=== PATIENT | male | born 1965 | race Caucasian/White ===

== ENCOUNTER → 2017-12-11 07:59 | Outpatient (CLI) | payer BC, SELFPAY ==
--- NOTE | 2017-12-17 14:04 | DIABASSESS_ITS ---
DESCRIPTION/ASSESSMENT: Remi Raya presents for diabetes self management focused on food. He is newly diagnosed with A1c 7.4. Food Guidelines - has changed many food choices from breakfast sandwich to friut in AM, given up twinkie type foods, stopped Mt. Dew and lemonade. He is drinking water and skipping snacks. He eats a ham/cheese wrap for lunch and broccoli cheddar or chicken noodle soup for lunch. He has a cheeseburger with bun for supper; steak and pasta. 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 Medication - Metformin 750mg once a day Monitoring - he does not have a monitor Risks: he quit tobacco 2 weeks ago Coping - denies unreasonable stress INTERVENTION: MNT is provided in the following areas based on patients interest and assessment of needs: Food Guidelines - Reviewed diabetes food guide with focus on carbohydrate sources that are better for glycemic control, and focused on non-carbohydrate foods. Physical Activity - discussed benefits of cardiovascular activity and he acknowledges this. Monitoring - tested blood sugars today at 140mg/dl. He agrees to focus on food and exercise and reconsider at his next provider visit. ACTION PLAN: He agrees to read labels for carbohydrate; cut back by 1 slice of bread daily; increase vegetables daily be physically active 3 days a week working toward 20 minutes each time
== END ==
PROVIDERS: PCP Specialist/Technologist Athletic Trainer; Visit Provider Dietitian, Registered
DX: E11.9 Type 2 diabetes mellitus without complications (principal); Z71.3 Dietary counseling and surveillance
CPT/HCPCS: 97802

== ENCOUNTER 2018-01-02 13:09 | Outpatient (REF) | payer SELFPAY | END 2018-01-02 13:10 | LOC: OM 13:09 | PROVIDERS: PCP Specialist/Technologist Athletic Trainer; Visit Provider Nurse Practitioner Family | DX: Z02.79 Encounter for issue of other medical certificate (principal) ==

== ENCOUNTER 2018-10-23 16:15 | Outpatient (REF) | payer BC, SELFPAY ==
[2018-10-23 21:37] LABS: Anion Gap 12.6 mmol/L (3-11); BUN 20 mg/dL (7-18); CO2 26.4 mmol/L (21.0-32.0); CREATININE 0.95 mg/dL (0.70-1.30); Calcium 8.8 mg/dL (8.5-10.1); Calculated LDL 76; Chloride 105 mmol/L (98-107); Cholesterol 145 mg/dL (50-200); Glucose 179 mg/dL (70-100); HDL Cholesterol 33 mg/dL (40-60); Potassium 4.3 mmol/L (3.5-5.1); Sodium 144 mmol/L (136-145); Triglyceride 180 mg/dL (30-150)
== END 2018-10-23 16:35 ==
LOC: NCHCN 16:15
PROVIDERS: PCP Specialist/Technologist Athletic Trainer; Visit Provider Specialist/Technologist Athletic Trainer
DX: R73.09 Other abnormal glucose (principal); Z00.00 Encounter for general adult medical examination without abnormal findings; E78.5 Hyperlipidemia, unspecified
CPT/HCPCS: 80048; 80061; 83721

== ENCOUNTER 2019-05-15 11:13 | Outpatient (REF) | payer BC, SELFPAY | END 2019-05-15 11:33 | LOC: NCHCN 11:13 | PROVIDERS: PCP Specialist/Technologist Athletic Trainer; Visit Provider Specialist/Technologist Athletic Trainer | DX: N40.0 Benign prostatic hyperplasia without lower urinary tract symptoms (principal) | CPT/HCPCS: 84154 ==

== ENCOUNTER 2019-06-07 01:15 | Emergency (ER) | payer BC, SELFPAY ==
[2019-06-07 01:18] VITALS: BP 158/106; PULSE 77; RESP 16; TEMP 36.4; O2SAT 99
--- NOTE | 2019-06-07 01:23 | DI.CT_ITS ---
EXAM: CT CHEST PE CTA CLINICAL HISTORY: Hemoptysis, rule out PE, mass, pneumonia. TECHNIQUE: Imaging Protocol: Axial CT angiography was performed with multi-slice acquisition and mu lti-planar and/or 3D reconstructions. CONTRAST MATERIAL: Intravenous: Omnipaque 350 Contrast volume:62 mL COMPARISON: No exams were available for comparison FINDINGS: Pulmonary Arteries: No evidence of filling defect to suggest pulmonary emboli. Patient motion artifac t does limit evaluation. Tracheobronchial tree: Patent where visualized. Mediastinum and Ana: No dominant adenopathy or fluid collection. Pulmonary parenchyma: No consolidation or dominant measurable mass. Mild paraseptal emphysematous matthew nges. Pleura: No effusion or pneumothorax. Heart: The heart is not dilated. No coronary artery calcifications are seen. No right heart strain or pericardial effusion. Aorta: Thoracic aorta non-dilated. No aneurysm or dissection. Upper abdomen: Unremarkable. Bones: Mild degenerative changes. Other findings: Patient motion artifact. IMPRESSION: No pulmonary embolus, thoracic aortic dissection or aneurysm. DATA REPOSITORY: All CT scans at this facility are submitted to the National Radiology Data Registry (NRDR) Dose Index Registry (DIR) with the [employer] (ACR). RADIATION OPTIMIZATION: All CT scans at this facility use at least one of these dose optimization te chniques: automated exposure control; mA and/or kV adjustment per patient size (includes targeted exa ms where dose is matched to clinical indication); or iterative reconstruction.
--- NOTE | 2019-06-07 01:23 | W.ED.GENAD ---
Discharge Plan Disposition Patient Disposition: HOME Condition: Good Discharge Details Chief Complaint: RespSymp Clinical Impression: Blood-tinged sputum Primary Care Provider: Brennen De La Garza ED Provider: Jarod Alvarez Home Meds and New Rx's Prescriptions: New Symbicort 160-4.5 mcg/actuation HFA aerosol inhaler 2 puff IH BID Qty: 6 RF: 0 Continued acyclovir 200 MG capsule 200 mg PO DAILY RF: 0 tamsulosin 0.4 MG capsule 0.4 mg PO DAILY RF: 0 esomeprazole magnesium [Nexium] 40 MG capsule,delayed release(DR/EC) 40 mg PO DAILY RF: 0 simvastatin 20 MG tablet 20 mg PO DAILY RF: 0 ibuprofen 800 MG tablet 800 mg PO Q8H PRNQty: 15 RF: 0 Discharge Instructions Instructions: Hemoptysis (ED) Additional Instructions: At this time the CT scan shows no evidence of significant pneumonia, severe bronchitis requiring antibiotics, or cancer. Please take the inhaler as directed. Please follow-up closely with your primary care provider. If you notice any worsening of your symptoms, or any new symptoms such as return of the blood in your sputum, vomiting, diarrhea, fever, chills, shortness of breath, chest pain, numbness, weakness, or fainting , please return immediately to the emergency department for reevaluation. Please follow up with your primary care provider as soon as possible for reassessment and reevaluation. As always, it was a pleasure participating in your medical care today. Referrals: Brennen De La Garza [Primary Care Provider] - Medical Decision Making Is a very pleasant 54-year-old male no significant past medical history who presents today for evaluation of hemoptysis. He is a chronic smoker, he states that for the last 2 to 3 weeks he has had a mild nonproductive cough, and starting today he has had a fairly significant amount of bleeding which she describes as quarter to half dollar size, present with cough with bright red blood. He denies history of cancer. He does admit to mild fatigue and mild weight loss over the last 2 to 3 weeks. Physical exam demonstrates clear lung sounds, oxygen saturation is notably stable at 99%, respirations 16. Patient states that he feels very well. He is not actively coughing currently. Differential includes bronchitis, versus pneumonia. Less likely PE. Obviously of concern is also lung mass or cancer. We will get a CT scan for further assessment, evaluate for anemia, closely monitor and reassess. Currently the patient is notably stable and shows no signs whatsoever of significant airway compromise, significant hemoptysis or other abnormality. There is no clinical indication whatsoever for emergent airway intervention. 3 AM Patient's laboratory work-up is returned notably unremarkable. No white count, bandemia, or left shift. Hemoglobin is stable, coagulation studies are normal. Electrolytes unremarkable. Renal function stable. Troponin normal and TSH normal. CT scan shows no evidence of dissection, significant pulmonary embolism, or other significant abnormality per virtual radiology. Symptoms clinically consistent with Yisel-Boone tear or Boerhaave syndrome. I suspect the patient's symptoms are likely secondary to mild bronchitis. The patient has had a few more episodes of cough here in the ED, and he has had no hemoptysis whatsoever here. Patient remains hemodynamically stable. At this time with no evidence of significant parenchymal abscesses, and an unremarkable CT scan I feel his symptoms are clinically consistent with mild bronchitis and small amounts of hemoptysis secondary to this. I do feel that the patient can be safely discharged home with close follow-up with his primary care provider. Discussed red flags which to return. We will give a combination albuterol steroid inhaler. I have extensively reviewed the treatment plan and discharge instructions with the patient and their family. I have addressed all patient concerns at this time. The patient and family was made aware of what symptoms to monitor for that would warrant a return to the emergency department. Discussed the plan with the patient and family, they demonstrate verbal understanding and agreement with our assessment and plan at this time. EKG 1: 29 Rate 79, intervals normal, normal sinus rhythm, no significant ST elevations or depressions, minimal less than 1 mm of elevation in V1 and V2, inverted T wave in lead III. No evidence of STEMI. FINDINGS: Pulmonary arteries: Main pulmonary artery normal in caliber. No pulmonary emboli to segmental level. Motion degradation of images limits evaluation more distally the. Aorta: Unremarkable. No aortic aneurysm. No aortic dissection. Lungs: Hyperinflation of lungs with mild emphysematous change. Central airways patent. Pleural space: Unremarkable. No pneumothorax. No pleural effusion. Heart: Unremarkable. No cardiomegaly. No pericardial effusion. Lymph nodes: Unremarkable. No enlarged lymph nodes. Bones/joints: The spine demonstrates mild degenerative changes at multiple levels. No acute fracture. Soft tissues: Unremarkable. IMPRESSION: 1. No pulmonary artery embolism demonstrated to segmental level. Evaluation more distally limited. 2. Mild emphysema. Thank you for allowing us to participate in the care of your patient. Dictated and Authenticated by: Remi Swanson DO 06/07/2019 2:57 AM Eastern Time ([place] & [place]) HPI General Date/Time Provider Initiated Documentation: 06/07/19 01:16. HPI Narrative: This is a 54-year-old male with a past medical history of chronic tobacco abuse, who presents for hemoptysis. Patient states that for the last 2 to 3 weeks he has had a mild cough that is been nonproductive, he does admit to very mild weight loss and fatigue, but denies any personal history of cancer. He describes the hemoptysis as becoming present this evening/early afternoon, he describes it as bright red, and half dollar sized to slightly larger. He denies previous hemoptysis, previous history of malignancy. He does admit to mild chest tightness that is nonexertional and is been present for the last few weeks in conjunction with his cough. Denies PE risk factors such as recent long car rides, immobilization, recent surgery, prior history of DVT or PE, family history of PE or DVT, morbid obesity, exogenous estrogen and smoking, hemoptysis, history of cancer. He is on no blood thinners. Related Data Home Medications Medication Instructions Recorded Confirmed acyclovir 200 mg PO DAILY 03/27/13 10/21/15 esomeprazole magnesium [Nexium] 40 mg PO DAILY 10/21/15 06/07/19 simvastatin 20 mg PO DAILY 10/21/15 06/07/19 tamsulosin 0.4 mg PO DAILY 10/21/15 06/07/19 ibuprofen 800 mg PO Q8H PRN #15 tablet 02/03/17 06/07/19 budesonide-formoterol [Symbicort] 2 puff IH BID #6 gm 06/07/19 Previous Rx's Medication Instructions Recorded ibuprofen 800 mg PO Q8H PRN #15 tablet 02/03/17 budesonide-formoterol [Symbicort] 2 puff IH BID #6 gm 06/07/19 Allergies Allergy/AdvReac Type Severity Reaction Status Date / Time pravastatin Allergy Severe chest pain Unverified 02/03/17 09:53 General Stated Complaint: RespSymp VANESSA: 3 Review of Systems All systems reviewed & are unremarkable except as noted in HPI and below PFSH Medical History (Updated 06/07/19 @ 02:51 by Jarod Alvarez DO) Gastroesophageal reflux disease Hyperlipidemia Surgical History (Updated 02/19/18 @ 14:34 by [place]) Repair of inguinal hernia Social History Smoking/Tobacco Use Status: Current every day Tobacco Type: cigarettes Alcohol Intake: current Alcohol Intake frequency: 3 or more drinks per day Alcohol type: beer Drug use: Never Substance use type: does not use Do you feel safe at home: Yes Do you feel safe in your relationship?: Yes Exam Narrative Exam Narrative: 1.Const: Well-nourished, Well-developed, appearing stated age 2.Eyes: PERRL, no conjunctival injection, and symmetrical lids. 3.ENT: Atraumatic external nose and ears. Moist MM. Neck: Symmetric, trachea midline, No thyromegaly. 4.CVS: +S1/S2, No murmurs or gallops. Peripheral pulses 2+ and equal in all extremities. Brisk capillary refill in all extremities. 5.RESP: Unlabored respiratory effort. Clear to auscultation bilaterally. No wheezes rales or rhonchi 6.GI: Soft, Nontender/Nondistended, No hepatosplenomegaly. No guarding or rebound. 7.MSK: Normocephalic/Atraumatic, Extremities w/o deformity or ttp No cyanosis or clubbing, Normal movement of all extremities 8.Skin: Warm, Dry. No rashes or lesions. 9.Neuro: nuclear medical technologist II-XII grossly intact. Sensation grossly intact, no focal neurologic deficits. 10.Psych: (AAO) x3. Appropriate mood and affect Course Vital Signs Vital signs: Vital Signs Temperature 36.4 C L 06/07/19 01:18 Pulse 77 06/07/19 01:18 Respiratory Rate 16 06/07/19 01:18 Blood Pressure 158/106 H 06/07/19 01:18 Pulse Oximetry 99 06/07/19 01:18 Temperature 36.4 C L 06/07/19 01:18 Temperature Source Skin 06/07/19 01:18 Pulse 77 06/07/19 01:18 Respiratory Rate 16 02/02/20 01:18 Blood Pressure 158/106 H 06/07/19 01:18 Blood Pressure Position Sitting 06/07/19 01:18 Pulse Oximetry 99 06/07/19 01:18 Oxygen Delivery Method Bi-pap 06/07/19 01:18 Oxygen Flow Rate 0 06/07/19 01:18
[2019-06-07 01:48] LABS: Abs Immature Grans 0.07 k/cumm (0.0-0.09); Absolute Basophil Count 0.06 k/cumm (0.0-0.2); Absolute Eosinophil Count 0.16 k/cumm (0.0-0.7); Absolute Monocyte Count 0.82 k/cumm (0.11-0.7); Absolute Neutrophil Count 4.82 k/cumm (1.2-6.7); Basophils % 0.6; Eosinophils % 1.6; HCT 46.7 % (40.0-50.0); HGB 16.3 g/dL (13.5-17.5); Immature Grans % 0.7 %; Lymphocytes % 39.1; Mean Corp. HGB Concentration 34.9 g/dL (32.0-36.0); Mean Corpuscular Hemoglobin 30.9 pg (27.0-33.0); Mean Corpuscular Volume 88.4 fL (80-95); Mean Platelet Volume 9.9 fL (8.0-11.0); Monocytes % 8.4; Neutrophils % 49.6; Platelet Count 239 x1000/uL (130-400); RBC 5.28 m/cumm (4.50-6.00); RBC Distribution Width 13.2 % (11.8-14.1); White Blood Cell Count 9.73 k/cumm (4.4-10.8)
[2019-06-07 02:01] LABS: PTT Activated 24.3 sec (21.0-31.4); Prothrombin Time 10.4 sec (9.3-11.0)
[2019-06-07 02:03] LABS: ALT 30 U/L (16-63); AST 19 U/L (15-37); Alkaline Phosphatase 106 U/L (46-116); Anion Gap 12.6 mmol/L (3-11); BUN 14 mg/dL (7-18); Bilirubin, Total 0.3 mg/dL (0.2-1.0); CO2 25.4 mmol/L (21.0-32.0); CREATININE 0.87 mg/dL (0.70-1.30); Calcium 8.5 mg/dL (8.5-10.1); Chloride 104 mmol/L (98-107); Glucose 116 mg/dL (74-106); Potassium 3.7 mmol/L (3.5-5.1); Sodium 142 mmol/L (136-145); Total Protein 7.6 g/dL (6.4-8.2)
[2019-06-07 02:04] LABS: Troponin I < 0.05 ng/Ml (<0.06)
[2019-06-07 02:11] LABS: TSH (W/Ref FT4) 2.69 uIU/mL (0.36-3.74)
[2019-06-07] MEDS: Omnipaque 350 MG/ML 100 ML BTL IJ (02:35)
--- NOTE | 2019-06-07 02:55 | DI.VRAD_ITS ---
PROCEDURE INFORMATION: Exam: CT Angiography Chest With Contrast Exam date and time: 06/07/2019 2:25 AM Age: 54 years old Clinical indication: Other: Hemoptysis; Additional info: R/O pe, mass, pneumonia TECHNIQUE: Imaging protocol: Computed tomographic angiography of the chest with intravenous contrast. 3D rendering: MIP and/or 3D reconstructed images were created by the technologist. COMPARISON: CR ABD FLAT UPRIGHT PA CHEST 10/21/2015 3:29 PM FINDINGS: Pulmonary arteries: Main pulmonary artery normal in caliber. No pulmonary emboli to segmental level. Motion degradation of images limits evaluation more distally the. Aorta: Unremarkable. No aortic aneurysm. No aortic dissection. Lungs: Hyperinflation of lungs with mild emphysematous change. Central airways patent. Pleural space: Unremarkable. No pneumothorax. No pleural effusion. Heart: Unremarkable. No cardiomegaly. No pericardial effusion. Lymph nodes: Unremarkable. No enlarged lymph nodes. Bones/joints: The spine demonstrates mild degenerative changes at multiple levels. No acute fracture. Soft tissues: Unremarkable. IMPRESSION: 1. No pulmonary artery embolism demonstrated to segmental level. Evaluation more distally limited. 2. Mild emphysema. Dictated and Authenticated by: Remi Swanson MD. Ordering:GAVIN Olivera MD
[2019-06-07] MEDS: Inhaler, Assist Device 1 EACH MC (03:03)
[2019-06-07 03:05] VITALS: BP 142/86; PULSE 91; RESP 16; O2SAT 100
== END 2019-06-07 03:20 | disposition home or self-care (01) ==
PROVIDERS: Emergency Provider Student in an Organized Health Care Education/Training Program; PCP Specialist/Technologist Athletic Trainer
DX: R04.2 Hemoptysis (principal); R53.83 Other fatigue; R63.4 Abnormal weight loss; F17.210 Nicotine dependence, cigarettes, uncomplicated
CPT/HCPCS: 36415; 71275; 80053; 93005; 99285; 84443; 84484; 85025; 85610; 85730; 93010; J3490

== ENCOUNTER 2020-08-08 12:28 | Outpatient (REF) | payer BC, SELFPAY ==
[2020-08-08 15:53] LABS: Anion Gap 10.3 mmol/L (3-11); BUN 14 mg/dL (7-18); CO2 25.7 mmol/L (21.0-32.0); CREATININE 0.9 mg/dL (0.70-1.30); Calcium 9.3 mg/dL (8.5-10.1); Calculated LDL 94 mg/dL (<100); Chloride 105 mmol/L (98-107); Cholesterol 159 mg/dL (<200); Glucose 120 mg/dL (74-106); HDL Cholesterol 42 mg/dL (40-60); Potassium 4.3 mmol/L (3.5-5.1); Sodium 141 mmol/L (136-145); Triglyceride 115 mg/dL (<150)
== END 2020-08-08 12:29 | disposition home or self-care (01) ==
LOC: NCHCN 12:28
PROVIDERS: PCP Nurse Practitioner Family; Visit Provider Nurse Practitioner Family
DX: I10 Essential (primary) hypertension (principal); E78.5 Hyperlipidemia, unspecified
CPT/HCPCS: 80048; 80061

== ENCOUNTER 2021-04-23 10:35 | Emergency (ER) | payer BC, SELFPAY ==
[2021-04-23 10:37] VITALS: BP 156/105; PULSE 96; TEMP 37.2; O2SAT 97
--- NOTE | 2021-04-23 10:52 | W.ED.GENAD ---
Discharge Plan Disposition Patient Disposition: HOME Condition: Improving Discharge Details Clinical Impression: Urticaria Primary Care Provider: Cindy Uribe ED Provider: Brendan Schmidt Home Meds and New Rx's Prescriptions: New prednisone 50 mg tablet 50 mg PO DAILY 5 Days Qty: 5 RF: 0 famotidine 20 mg tablet 20 mg PO BID 5 Days Qty: 10 RF: 0 Continued acyclovir 200 MG capsule 200 mg PO DAILY RF: 0 tamsulosin 0.4 MG capsule 0.4 mg PO DAILY RF: 0 esomeprazole magnesium [Nexium] 40 MG capsule,delayed release(DR/EC) 40 mg PO DAILY RF: 0 simvastatin 20 MG tablet 20 mg PO DAILY RF: 0 ibuprofen 800 MG tablet 800 mg PO Q8H PRNQty: 15 RF: 0 budesonide-formoterol [Symbicort] 160-4.5 mcg/actuation HFA aerosol inhaler 2 puff IH BID Qty: 6 RF: 0 Discharge Instructions Instructions: Urticaria (ED) Additional Instructions: Please take famotidine and prednisone as prescribed until finished. May use Benadryl 25 to 50 mg as needed for itching. Apply cool compress to reduce discomfort. Return to the emergency room for any acute concerns. Medical Decision Making 55-year-old male presents from home with onset of acute, pruritic, raised urticarial-like rash primarily located on his arms. He has no other systemic signs and symptoms of anaphylactic. Consistent with dermatitis. We'll place him on a burst of steroids with oral prednisone, he may use Zantac as well as [id number] Benadryl. He is stable and appropriate for discharge to home. HPI General Mode of arrival: ambulatory. Date/Time Provider Initiated Documentation: 04/23/21 10:35. Information obtained by: patient. History of Present Illness 55 year old M presents to the emergency department with the chief complaint of Itching itching rash, primarily on arms, described as moderate, and is localized to the left, right and upper extremity. Patient reports no radiation. Patient started experiencing this hour(s) and it has been constant. No relieving factors improve symptom(s), No exacerbating factors reported . Patient notes denies chest pain, cough, shortness of breath and syncope. Patient did receive the following treatments prior to arrival, none Related Data Home Medications Medication Instructions Recorded Confirmed acyclovir 200 mg PO DAILY 03/27/13 04/23/21 esomeprazole magnesium [Nexium] 40 mg PO DAILY 10/21/15 04/23/21 simvastatin 20 mg PO DAILY 10/21/15 04/23/21 tamsulosin 0.4 mg PO DAILY 10/21/15 04/23/21 ibuprofen 800 mg PO Q8H PRN #15 tablet 02/03/17 04/23/21 budesonide-formoterol [Symbicort] 2 puff IH BID #6 gm 06/07/19 04/23/21 famotidine 20 mg PO BID 5 Days #10 tab 04/23/21 prednisone 50 mg PO DAILY 5 Days #5 tab 04/23/21 Previous Rx's Medication Instructions Recorded ibuprofen 800 mg PO Q8H PRN #15 tablet 02/03/17 budesonide-formoterol [Symbicort] 2 puff IH BID #6 gm 06/07/19 famotidine 20 mg PO BID 5 Days #10 tab 04/23/21 prednisone 50 mg PO DAILY 5 Days #5 tab 04/23/21 Allergies Allergy/AdvReac Type Severity Reaction Status Date / Time pravastatin Allergy Severe chest pain Unverified 04/23/21 10:43 General Stated Complaint: RashLesion VANESSA: 4 Review of Systems Narrative: 6 systems reviewed and otherwise negative. No throat closing, noticed difficulty swallowing, no change to speech, no wheezing. PFSH All Active Problems (Updated 04/23/21 @ 10:54 by Brendan Schmidt MD) Screening for colorectal cancer (Acute) Blood-tinged sputum (Acute) Urticaria (Acute) Medical History Gastroesophageal reflux disease Hyperlipidemia Surgical History (Updated 02/19/18 @ 14:34 by [employer] [place]) Repair of inguinal hernia Social History Smoking/Tobacco Use Status: Current every day Tobacco Type: cigarettes Smoking risk assessment performed?: Yes Alcohol Intake: current Alcohol Intake frequency: 3 or more drinks per day Alcohol type: beer Drug use: Never Substance use type: does not use Do you feel safe at home: Yes Do you feel safe in your relationship?: Yes Exam Narrative Exam Narrative: GEN: awake, alert, oriented 3. Pleasant, well groomed, interactive. HEAD: Normocephalic, atraumatic ENT: Mucous membranes moist, oropharynx unremarkable, External ear exam unremarkable EYES: PERRL, EOMI NECK: Full ROM, no JOSE, no menigismus CHEST/RESP: Nontender, clear to auscultation bilateral, no wheeze/rhonchi/rales CARDIOVASCULAR: RRR, no murmur, rub oc. 2+ Rad pulse bilateral ABDOMEN: Soft, nontender, no mass. +Bowel sounds EXT: Full ROM, no edema, bilateral arms with blanching, erythematous, raised and urticarial-like rash. Scant rash present on chest and abdomen. Neuro: Grossly normal neurologic exam, conversant, interactive. Psych: Speech fluent, thoughts congruent, affect normal Course Vital Signs Vital signs: Vital Signs Temperature 37.2 C 04/23/21 10:37 Pulse 96 H 04/23/21 10:37 Blood Pressure 156/105 H 04/23/21 10:37 Pulse Oximetry 97 04/23/21 10:37 Temperature 37.2 C 04/23/21 10:37 Temperature Source Temporal Artery Scan 04/23/21 10:37 Pulse 96 H 04/23/21 10:37 Respiratory Effort Non-Labored 04/23/21 10:41 Blood Pressure 156/105 H 04/23/21 10:37 Blood Pressure Position Sitting 04/23/21 10:37 Pulse Oximetry 97 04/23/21 10:37 Oxygen Delivery Method Room Air 04/23/21 10:37 Oxygen Flow Rate 0 04/23/21 10:37 Pain Level 0 04/23/21 10:37 PAWSS Have you Been Recently Intoxicated or Drunk Within the Last 30 days?: No Have you Ever Experienced Previous Episodes of Alcohol Withdrawal?: No Have you ever Experienced Withdrawal Seizures?: No Have you ever Experienced Delirium Tremens(DT)s?: No Have you ever undergone Alcohol Rehabilitation Treatment (i.e, inpt ot outpatient treatment programs)?: No Have you ever Experienced Blackouts?: No Have you ever Combined Alcohol with other Downers within the last 90 days?: No Have you ever Combined Alcohol with any other Substance of Abuse during the last 90 days?: No Positive Blood Alcohol level on Presentation? [PCS.BAL]: No Evidence of Increased Autonomic Activity (i.e. HR>120, tremor, sweating, agitation, nausea)?: No Result: 0
[2021-04-23] MEDS: Famotidine 20 MG TAB 40 MG PO (11:00)
[2021-04-23] MEDS: predniSONE 20 MG TAB 60 MG PO (11:00)
== END 2021-04-23 11:04 | disposition home or self-care (01) ==
PROVIDERS: Emergency Provider Emergency Medicine; PCP Nurse Practitioner Family
DX: L50.8 Other urticaria (principal)
CPT/HCPCS: 99283; J7512

== ENCOUNTER 2022-04-13 16:28 | Outpatient (REF) | payer BC, SELFPAY ==
[2022-04-13 20:14] LABS: COMMENT (LAB VIEW ONLY) 276.87 mg/dL; PROTEIN 37.9 mg/dL; Prot/Crea Ur Ratio 0.13
== END 2022-04-13 16:29 | disposition home or self-care (01) ==
LOC: NCHCN 16:28
PROVIDERS: PCP Nurse Practitioner Family; Visit Provider Nurse Practitioner Family
DX: E11.9 Type 2 diabetes mellitus without complications (principal)
CPT/HCPCS: 82565; 84156

== ENCOUNTER 2022-09-08 10:40 | Emergency (ER) | payer BC, SELFPAY ==
[2022-09-08 10:46] VITALS: BP 126/101; PULSE 111; RESP 18; TEMP 36.3; O2SAT 96
--- NOTE | 2022-09-08 10:54 | W.ED.GENAD ---
Discharge Plan Disposition Patient Disposition: Home Condition: Stable Discharge Details Clinical Impression: Abdominal pain Primary Care Provider: Cindy Uribe ED Provider: Benja Villa Home Meds and New Rx's Prescriptions: New amoxicillin-pot clavulanate 875-125 mg tablet 1 tab PO BID Qty: 14 0RF Continued acyclovir 200 MG capsule 200 mg PO DAILY tamsulosin 0.4 MG capsule 0.4 mg PO DAILY esomeprazole magnesium [Nexium] 40 MG capsule,delayed release(DR/EC) 40 mg PO DAILY simvastatin 20 MG tablet 20 mg PO DAILY ibuprofen 800 MG tablet 800 mg PO Q8H PRNQty: 15 0RF budesonide-formoterol [Symbicort] 160-4.5 mcg/actuation HFA aerosol inhaler 2 puff IH BID Qty: 6 0RF Discharge Instructions Instructions: Abdominal Pain (ED) Additional Instructions: you had signs of dehydration on your lab work, your cat scan did not show any concerning findings follow up with your primary care provider this week if pain continues if you feel more ill, have severe worsening pain or persistent vomiting return to the emergency department Medical Decision Making 57 yo male with hx of gerd, hld, denies prior abdominal surgeries comes in with cc of abdominal pain since Saturday. He states he had n/v as well that day and pain hasn't improved so came here. He denies fevers, chills, chest pain, testicle pain/swelling. He arrives stable, localizes the pain to the mid abdomen. His abdomen is nondistended, is very tender in the mid abdomen, no peritoneal signs. Will proceed with cbc, cmp, lipase and ct abd/pelvis. labs show elevated hemoglobin and hct, lily. HE is a smoker, has been making urine per patient, has had decreased po intake. CT without acute findings, has increased small bowel fluid no other emergent findings. HE has no pain now and no tenderness on exam. Will treat as possible bacterial gastroenteritis with augmentin. He is stable for d/c, advised to f/u with pcp this week and return precautions given Differential Diagnosis Differential Diagnosis: pancreatitis, sbo, cholecystitis Imaging Data Radiologic Study: Attestation: I personally reviewed and interpreted this imaging study as follows: Imaging: CT Scan Radiologist's impression: IMPRESSION: 1. Abnormally increased small bowel fluid without bowel obstruction, ascites or other acutely concerning abnormality. 2. Mild colonic diverticulosis and atherosclerosis. 3. Bilateral L5 spondylolysis and grade 1 L5 anterolisthesis. Lab Data Lab results reviewed: Yes I reviewed the patient's lab results. HPI General Mode of arrival: ambulatory. Date/Time Provider Initiated Documentation: 09/08/22 10:41. Limitations to Documentation: no limitations. Information obtained by: patient. History of Present Illness 57 year old M presents to the emergency department with the chief complaint of abdominal pain, described as severe, Quality is described as sharp, and is localized to the abdomen. Patient reports no radiation. Patient started experiencing this day(s) (3) and it has been constant. No relieving factors improve symptom(s), No exacerbating factors reported . Patient notes nausea/vomiting; denies chest pain, fever/chills and shortness of breath. Patient did receive the following treatments prior to arrival, none Related Data Home Medications Medication Instructions Recorded Confirmed acyclovir 200 mg capsule 200 mg PO DAILY 03/27/13 04/23/21 esomeprazole magnesium 40 mg 40 mg PO DAILY 10/21/15 04/23/21 capsule,delayed release (Nexium) simvastatin 20 mg tablet 20 mg PO DAILY 10/21/15 04/23/21 tamsulosin 0.4 mg capsule 0.4 mg PO DAILY 10/21/15 04/23/21 ibuprofen 800 mg tablet 800 mg PO Q8H PRN ##15 02/03/17 04/23/21 budesonide-formoterol HFA 160 2 puff inhalation BID #6 grams 06/07/19 04/23/21 mcg-4.5 mcg/actuation aerosol inhaler (Symbicort) amoxicillin 875 mg-potassium 1 tab PO BID #14 tabs 09/08/22 clavulanate 125 mg tablet Previous Rx's Medication Instructions Recorded ibuprofen 800 mg tablet 800 mg PO Q8H PRN ##15 02/03/17 budesonide-formoterol HFA 160 2 puff inhalation BID #6 grams 06/07/19 mcg-4.5 mcg/actuation aerosol inhaler (Symbicort) amoxicillin 875 mg-potassium 1 tab PO BID #14 tabs 09/08/22 clavulanate 125 mg tablet Allergies Allergy/AdvReac Type Severity Reaction Status Date / Time pravastatin Allergy Severe chest pain Unverified 09/08/22 10:50 General Stated Complaint: Abd Prob VANESSA: 2 Review of Systems All systems reviewed & are unremarkable except as noted in HPI and below Constitutional Constitutional: Denies chills, Denies fever(s) and Denies weakness Cardiovascular Cardiovascular: Denies chest pain and Denies dyspnea Respiratory Respiratory: Denies cough and Denies dyspnea Gastrointestinal Gastrointestinal: Reports abdominal pain Integumentary/Breasts Skin/Breast: Denies rash Neurologic Neurologic: Denies weakness PFSH All Active Problems (Updated 09/08/22 @ 12:29 by Benja Villa MD) Screening for colorectal cancer (Acute) Blood-tinged sputum (Acute) Urticaria (Acute) Abdominal pain (Acute) Medical History Gastroesophageal reflux disease Hyperlipidemia Surgical History (Updated 02/19/18 @ 14:34 by [employer] [place]) Repair of inguinal hernia Social History Smoking/Tobacco Use Status: Current every day Tobacco Type: cigarettes Smoking risk assessment performed?: Yes Alcohol Intake: current Alcohol Intake frequency: 3 or more drinks per day Alcohol type: beer Drug use: Never Substance use type: does not use Do you feel safe at home: Yes Do you feel safe in your relationship?: Yes Exam Const General: no acute distress Orientation: alert [facility] Head: normal to inspection Ears: external ears normal General nose exam: external nose normal Mouth: moist mucous membranes Eyes General: appearance normal, both eyes and all related structures Neck Neck: normal visual inspection Resp Effort & Inspection: normal respiratory effort and able to speak in complete sentences Cardio Rate: regular rate GI Palpation: soft and tender Skin General skin exam: no rashes or lesions noted Neuro General: patient alert and patient oriented x3 Extrem General: normal to inspection Psych Mental Status: mental status grossly normal Course Vital Signs Vital signs: Vital Signs Temperature 36.3 C L 09/08/22 10:46 Pulse 111 H 09/08/22 10:46 Respiratory Rate 18 09/08/22 10:46 Blood Pressure 126/101 H 09/08/22 10:46 Pulse Oximetry 96 09/08/22 10:46 Temperature 36.3 C L 09/08/22 10:46 Temperature Source Oral 09/08/22 10:46 Pulse 111 H 09/08/22 10:46 Respiratory Rate 18 09/08/22 10:46 Blood Pressure 126/101 H 09/08/22 10:46 Blood Pressure Position Sitting 09/08/22 10:46 Pulse Oximetry 96 09/08/22 10:46 Oxygen Delivery Method Room Air 09/08/22 10:46 Oxygen Flow Rate 0 09/08/22 10:46 Pain Level 9 09/08/22 10:46
[2022-09-08 10:59] LABS: Abs Immature Grans 0.04 10^3/uL (0.0-0.06); Absolute Basophil Count 0.07 10^3/uL (0.0-0.2); Absolute Eosinophil Count 0.06 10^3/uL (0.0-0.7); Absolute Lymphocyte Count 2.29 10^3/uL (1.2-3.4); Absolute Monocyte Count 1.09 10^3/uL (0.1-0.8); Absolute Neutrophil Count 3.08 10^3/uL (1.2-6.7); Basophils % 1.1; Eosinophils % 0.9; Immature Grans % 0.6; Lymphocytes % 34.5; MCHC 33.6 % (32.0-36.0); MCV 89 fL (80-95); MPV 9.8 fL (8.0-11.0); Monocytes % 16.4; Neutrophils % 46.5; Platelet Count 257 10^3/uL (130-400); RDW 13.2 % (11.8-14.1); RDW-SD 43.6 fL; WBC 6.63 10^3/uL (4.4-10.8)
[2022-09-08] MEDS: Ondansetron 4 MG/2 ML VIAL IVP (11:02)
[2022-09-08] MEDS: Ketorolac 15 MG/ML VIAL IVP (11:02)
[2022-09-08] MEDS: Normal Saline 1,000 ML 1000 ML IV (11:02)
[2022-09-08 11:03] LABS: HGB 19.2 g/dL (13.5-17.5)
[2022-09-08 11:04] LABS: HCT 57.2 % (40.0-50.0)
[2022-09-08 11:17] LABS: ALT 59 U/L (16-63); AST 30 U/L (15-37); Albumin 4.1 g/dL (3.4-5.0); Alkaline Phosphatase 123 U/L (46-116); Anion Gap 11.3 mmol/L (3-11); BUN 45 mg/dL (7-18); Bilirubin, Direct 0.1 mg/dL (0.0-0.2); Bilirubin, Total 0.2 mg/dL (0.2-1.0); CO2 25.7 mmol/L (21.0-32.0); CREATININE 2.3 mg/dL (0.70-1.30); Calcium 9.4 mg/dL (8.5-10.1); Chloride 99 mmol/L (98-107); Estimated GFR 32.31 (mL/min/1.73m2); Glucose 205 mg/dL (74-106); Sodium 136 mmol/L (136-145); Total Protein 8.6 g/dL (6.4-8.2)
--- NOTE | 2022-09-08 11:35 | DI.CT_ITS ---
Exam(s) CT ABDOMEN PELVIS WO EXAM: CT ABDOMEN PELVIS WO CLINICAL HISTORY: abdominal pain. TECHNIQUE: Imaging Protocol: Axial computed tomography images with coronal and sagittal reformatted images were created and reviewed CONTRAST MATERIAL: Intravenous: none Oral: None COMPARISON: CT CT CHEST PE CTA from 06/07/2019 FINDINGS: VISUALIZED LUNG BASES: No nodules nor pleural effusions evident. ABDOMEN: There is no ascites. LIVER: There are no obvious focal hepatic lesions evident of this noninfused study. GALLBLADDER/BILIARY: No obvious gallbladder pathology. CBD is not dilated. PANCREAS: No evidence of pancreatic mass nor dilatation of the pancreatic duct. SPLEEN: Spleen is not enlarged. No obvious intrasplenic lesions. ADRENALS: There are no significant adrenal masses. KIDNEYS:No cysts evident. No solid renal masses. No calculi nor hydronephrosis. . ABDOMINAL AORTA: Abdominal aorta is not enlarged. LYMPH NODES: There is no retroperitoneal nor paraaortic adenopathy. ABDOMINAL WALL: There is evidence of right-sided inguinal hernia repair. GI: There are fluid-filled small bowel loops noted, some which are slightly dilated measuring up to 3 cm size.. Some are filled with fluid. There is no pneumatosis. PELVIS: LYMPH NODES: There is no intrapelvic nor inguinal adenopathy. GI: No evidence of appendicitis.No evidence of sigmoid diverticulitis. URINARY BLADDER: No calculi nor obvious masses evident REPRODUCTIVE: Prostate size upper normal. Seminal vesicles unremarkable. OSSEOUS: No significant osseous lesions. There are bilateral pars defects at L5 level with mild ante rolisthesis L5 upon S1. No fractures. Sacroiliac joints appear unremarkable. IMPRESSION: 1. There are slightly prominent small bowel loops which contain fluid. There does not appear to be e vidence of a true bowel obstruction, free air, nor ascites. No evidence of acute appendicitis. Appropriate follow-up recommended. 2. L5 bilateral pars defects with mild anterolisthesis L5 upon S1. No fractures evident. RADIATION DOSE DELIVERED: 579.17mGy.cm Total DLP DATA REPOSITORY: All CT scans at this facility are submitted to the National Radiology Data Registry (NRDR) Dose Index Registry (DIR) with the [employer] [place] [employer] (ACR). RADIATION OPTIMIZATION: All CT scans at this facility use at least one of these dose optimization te chniques: automated exposure control; mA and/or kV adjustment per patient size (includes targeted exa ms where dose is matched to clinical indication); or iterative reconstruction.
[2022-09-08 12:09] LABS: Bilirubin Negative (Negative); Blood Negative (Negative); Clarity Clear (Clear); Glucose Negative (Negative); Ketones Negative (Negative); Leukocyte Esterase Negative (Negative); Nitrite Negative (Negative); Specific Gravity >= 1.030 (1.005-1.025); Urobilinogen 0.2 mg/dL (Up to 0.2); pH 5.5 (5-8)
[2022-09-08 12:11] LABS: Lipase 54 U/L (16-77)
[2022-09-08 12:16] LABS: Bacteria Few HPF (Negative); C & S Indicated? No; Casts 10-20 Hyaline LPF (Negative); Crystals Few Amorphous HPF (Negative); Epithelial Cells Rare HPF (Negative); Mucus Trace (Negative); RBC Negative HPF (0-2); WBC Negative HPF (0-5)
--- NOTE | 2022-09-08 12:16 | DI.VRAD_ITS ---
PROCEDURE INFORMATION: Exam: CT Abdomen And Pelvis Without Contrast Exam date and time: 09/08/2022 11:39 AM Age: 57 years old Clinical indication: Other: Abdominal pain TECHNIQUE: Imaging protocol: Computed tomography of the abdomen and pelvis without contrast. Radiation optimization: All CT scans at this facility use at least one of these dose optimization techniques: automated exposure control; mA and/or kV adjustment per patient size (includes targeted exams where dose is matched to clinical indication); or iterative reconstruction. COMPARISON: CR ABD FLAT UPRIGHT PA CHEST 10/21/2015 3:29 PM FINDINGS: Limitations: None significant. Lungs: Unremarkable. Pleural spaces: Unremarkable. Liver: Normal. Gallbladder and bile ducts: Normal. Pancreas: Normal. Spleen: Normal. Adrenal glands: Normal. Kidneys and ureters: Normal. Stomach and bowel: Normal stomach. Small bowel contains more than the expected amount of fluid. Sub threshold small bowel distension without bowel wall thickening or pneumatosis intestinalis. Fluid distended loops are seen in mid left abdomen with there is subtotal intra mesenteric bowel protrusion and in the far right abdomen. No swirling of the mesentery. Mild colonic diverticulosis. Appendix: Normal. Intraperitoneal space: No ascites. No pneumoperitoneum. No peritoneal lesion. Vasculature: Atherosclerosis is present. No significant calcified stenosis. No aneurysm. Lymph nodes: None patholigically enlarged or otherwise suspicious. Urinary bladder: Normal. Reproductive: Normal prostate. Bones/joints: No acute fracture or suspicious osseous lesion. Chronic appearing bilateral L5 pars interarticularis defects. 6 mm L5 spondylolisthesis. Soft tissues: Right inguinal herniorrhaphy and lower abdominal mesh. IMPRESSION: 1. Abnormally increased small bowel fluid without bowel obstruction, ascites or other acutely concerning abnormality. 2. Mild colonic diverticulosis and atherosclerosis. 3. Bilateral L5 spondylolysis and grade 1 L5 anterolisthesis. Dictated and Authenticated by: Sam Rudolph MD. Ordering:CHARLEEN Yousif MD
== END 2022-09-08 12:35 | disposition home or self-care (01) ==
PROVIDERS: Emergency Provider Emergency Medicine; PCP Nurse Practitioner Family
DX: R10.9 Unspecified abdominal pain (principal); E86.0 Dehydration; R11.2 Nausea with vomiting, unspecified
CPT/HCPCS: 80053; 83690; 96361; 96374; 96375; 99284; 74176; 81003; 81015; 82248; 83735; 85025; J1885; J2405

== ENCOUNTER 2022-09-28 15:56 | Outpatient (REF) | payer BC, SELFPAY ==
[2022-09-28 19:12] LABS: Anion Gap 5.9 mmol/L (3-11); BUN 13 mg/dL (7-18); CO2 28.1 mmol/L (21.0-32.0); CREATININE 1.1 mg/dL (0.70-1.30); Chloride 103 mmol/L (98-107); Glucose 113 mg/dL (74-106); Magnesium 1.7 mg/dL (1.8-2.4); Potassium 4.2 mmol/L (3.5-5.1); Sodium 137 mmol/L (136-145)
[2022-09-28 19:46] LABS: Hemoglobin A1C 5.6 % (<5.7)
== END 2022-09-28 15:57 | disposition home or self-care (01) ==
LOC: NCHCN 15:56
PROVIDERS: PCP Nurse Practitioner Family; Visit Provider Nurse Practitioner Family
DX: E11.9 Type 2 diabetes mellitus without complications (principal); K21.9 Gastro-esophageal reflux disease without esophagitis
CPT/HCPCS: 80048; 83036; 83735

== ENCOUNTER 2023-05-30 16:44 | Outpatient (REF) | payer BC, SELFPAY ==
[2023-05-30 19:21] LABS: Abs Immature Grans 0.02 10^3/uL (0.0-0.06); Absolute Basophil Count 0.07 10^3/uL (0.0-0.2); Absolute Eosinophil Count 0.19 10^3/uL (0.0-0.7); Absolute Monocyte Count 0.67 10^3/uL (0.1-0.8); Absolute Neutrophil Count 2.85 10^3/uL (1.2-6.7); Basophils % 1.1; HCT 44.7 % (40.0-50.0); HGB 15.1 g/dL (13.5-17.5); Immature Grans % 0.3; Lymphocytes % 40.6; MCH 30.2 pg (27.0-33.0); MCHC 33.8 % (32.0-36.0); MCV 89 fL (80-95); Monocytes % 10.5; Neutrophils % 44.5; Platelet Count 260 10^3/uL (130-400); RDW 13.1 % (11.8-14.1); RDW-SD 43.2 fL
[2023-05-30 20:10] LABS: Hemoglobin A1C 5.7 % (<5.7)
[2023-05-30 20:23] LABS: ALT 36 U/L (16-63); AST 24 U/L (15-37); Albumin 3.8 g/dL (3.4-5.0); Alkaline Phosphatase 94 U/L (46-116); Anion Gap 9.9 mmol/L (3-11); BUN 17 mg/dL (7-18); Bilirubin, Total 0.2 mg/dL (0.2-1.0); CO2 27.1 mmol/L (21.0-32.0); Chloride 100 mmol/L (98-107); Estimated GFR 87.24 (mL/min/1.73m2); Glucose 101 mg/dL (74-106); Magnesium 1.9 mg/dL (1.8-2.4); Sodium 137 mmol/L (136-145); Total Protein 7.5 g/dL (6.4-8.2); Vitamin B12 242 pg/mL (193-986)
== END 2023-05-30 16:45 | disposition home or self-care (01) ==
LOC: NCHCN 16:44
PROVIDERS: PCP Nurse Practitioner Family; Visit Provider Nurse Practitioner Family
DX: I10 Essential (primary) hypertension (principal); E11.9 Type 2 diabetes mellitus without complications; Z79.899 Other long term (current) drug therapy
CPT/HCPCS: 80053; 82607; 83036; 83735; 85025

== ENCOUNTER 2023-07-29 10:24 | Day surgery (SDC) | payer BC, SELFPAY ==
[2023-07-29 10:45] VITALS: BP 142/96; PULSE 91; RESP 16; TEMP 36.4; O2SAT 97
--- NOTE | 2023-07-29 11:09 | W.COLOREPORT ---
Date of service: 07/29/23 Time of Service: 11:09 Colonoscopy Report Procedure Description: PROCEDURES PERFORMED: 1. Colonoscopy with hot snare polypectomy x2 2. Endoscopic clip placement 3. Cold forceps polypectomy x 1 PREOPERATIVE DIAGNOSIS: Surveillance colonoscopy POSTOPERATIVE DIAGNOSIS: Colon polyps, sigmoid diverticulosis SURGEON: Mary Cruz MD INDICATION for procedure: The patient is a 58-year-old man who does not have a family history of colon cancer but has a personal history of prior polyps found and removed. He does not have any symptoms. This is a surveillance examination. Prior colonoscopies were at outside hospitals. FINDINGS: Normal terminal ileum. In the sigmoid colon, 2 polyps were removed with hot snare technique. They were both sessile, 1 was 3-5 mm in size the other was 7-10 mm in size. Resecting the large on left quite a large mucosal defect that appeared very deep and so I used an endoscopic clip to reapproximate the mucosal edges. There was mild sigmoid diverticular disease. No inflammation. There were some flat hyperplastic?appearing polyps in the rectum and I removed 1 with cold forceps technique to confirm benign histology there. SURVEILLANCE interval/FOLLOW-UP: 3 years SPECIMENS: yes EBL: Minimal COMPLICATIONS: None QUALITY of prep: Excellent Procedure in detail: The patient gave written consent and was in agreement with the indications, the potential risks as well as the benefits of the procedure. They were taken to the endoscopy suite and laid in the left lateral decubitus position. A timeout was performed and anesthesia was administered which was tolerated well. I started the procedure. Digital rectal and visual examination was performed and grossly within normal limits. A well-lubricated flexible colonoscope was then introduced and passed without any notable difficulty all the way to the cecum identified by the ileocecal valve and the appendiceal orifice. The terminal ileum was intubated and looked normal. The scope was then slowly withdrawn with the above-noted findings. The patient tolerated the procedure well and was taken to the PACU in hemodynamically stable condition.
--- NOTE | 2023-07-29 11:09 | W.PM.DSUDISC ---
Date of service: 07/29/23 Time of Service: 11:09 Discharge Plan Disposition Patient Disposition: Home Condition: Good Discharge Details Attending Provider: Brennen Cruz Primary Care Provider: Cindy Uribe Home Meds and New Rx's Prescriptions: No Action bisacodyl 5 mg tablet,delayed release (DR/EC) 5 mg PO ONCE Qty: 4 0RF Rx Instructions: Per Colonoscopy bowel prep instructions polyethylene glycol 3350 17 gram/dose powder 238 g PO ONCE Qty: 238 0RF Rx Instructions: For Colonoscopy bowel prep, as directed by office acyclovir 200 mg capsule 400 mg PO BID albuterol sulfate 90 mcg/actuation aerosol powdr breath activated 2 inh inhalation Q6H PRN amlodipine 5 mg tablet 5 mg PO DAILY atorvastatin 40 mg tablet 40 mg PO DAILY Allergy Relief (cetirizine) 10 mg capsule 10 mg PO DAILY PRN losartan 50 mg tablet 50 mg PO DAILY metformin 750 mg tablet extended release 24 hr 750 mg PO DAILY pantoprazole 40 mg tablet,delayed release (DR/EC) 40 mg PO DAILY tamsulosin 0.4 MG capsule 0.4 mg PO DAILY budesonide-formoterol [Symbicort] 160-4.5 mcg/actuation HFA aerosol inhaler 2 puff IH BID Qty: 6 0RF Discharge Instructions Additional Instructions: FINDINGS: More polyps were found and removed today. These are the reason was we do the colonoscopies. They are nothing to worry about since they are completely removed. They get tested regardless under a microscope and you will get called with those results in a couple of weeks. Because of your history of having polyps previously as well as finding these new polyps today, I recommend repeating another colonoscopy in 3 years. Stand Alone Forms: Colonoscopy Post Instructions Activity:: Activity as Tolerated Diet:: As Tolerated
[2023-07-29] MEDS: Lactated Ringers 1,000 ML 80 ML IV (11:12)
--- NOTE | 2023-07-29 11:43 | W.ANESPRE ---
General Info Date of Service Date Performed: 07/29/23 Height: 4 ft 11 in Weight: 59.5 kg Body Mass Index (BMI): 26.4 Surgical Procedure: Operation Date: 07/29/23 12:20 Proposed Procedure Side Surgeon p Roge Cruz MD Meds Allergies and Home Medications Allergies Allergy/AdvReac Type Severity Reaction Status Date / Time pravastatin Allergy Severe chest pain Verified 07/29/23 11:02 Home Medication Medication Instructions Recorded tamsulosin 0.4 mg capsule 0.4 mg PO DAILY 10/21/15 budesonide-formoterol HFA 160 2 puff inhalation BID #6 grams 06/07/19 mcg-4.5 mcg/actuation aerosol inhaler (Symbicort) acyclovir 200 mg capsule 400 mg PO BID 06/28/23 albuterol sulfate 90 mcg/actuation 2 inh inhalation Q6H PRN 06/28/23 breath activated powder inhaler amlodipine 5 mg tablet 5 mg PO DAILY 06/28/23 atorvastatin 40 mg tablet 40 mg PO DAILY 06/28/23 cetirizine 10 mg capsule (Allergy 10 mg PO DAILY PRN 06/28/23 Relief (cetirizine)) losartan 50 mg tablet 50 mg PO DAILY 06/28/23 metformin 750 mg tablet,extended 750 mg PO DAILY 06/28/23 release 24 hr pantoprazole 40 mg tablet,delayed 40 mg PO DAILY 06/28/23 release bisacodyl 5 mg tablet,delayed 5 mg PO ONCE Colonoscopy Bowel 07/15/23 release Prep #4 tabs polyethylene glycol 3350 17 238 g PO ONCE #238 grams 07/15/23 gram/dose oral powder Current Visit Medications: Current Medications Generic Name Dose Route Start Last Admin Trade Name Freq PRN Reason Stop Dose Admin Ringer's Solution 1,000 mls @ 80 mls/hr 07/29/23 06:00 07/29/23 11:12 IV 08/25/23 23:59 80 mls/hr INFUSION GUERA Administration IV Miscellaneous Supplies 1 each 07/29/23 06:00 Iv Access IV 08/25/23 23:59 DIRECTED GUERA Sodium Chloride 0 ml 07/29/23 06:00 Normal Saline Flush 10 Ml Syr IV 08/25/23 23:59 PRN PRN Sodium Chloride 0 ml 07/29/23 06:00 Normal Saline 10 Ml Vial IJ 08/25/23 23:59 DIRECTED PRN Sterile Water 0 ml 07/29/23 06:00 Water,Injection,Sterile 10 Ml Vial IJ 08/25/23 23:59 DIRECTED PRN [facility] Active Problems Active Problems: Problem Status Onset Code Urticaria L50.9 Blood-tinged sputum R04.2 Screening for colorectal cancer Z12.11, Z12.12 Medical History Medical History Tubular adenoma of colon Tobacco dependency History of colon polyps Wheezing Benign prostatic hyperplasia Essential hypertension Type 2 diabetes mellitus Herpes simplex virus (HSV) hepatitis Gastroesophageal reflux disease Hyperlipidemia Surgical History Surgical History History of colonoscopy per referal egd and colonoscopy done 05/30/[address] [facility], repeat in 3 years for multiple polyps and tubular adenomas. History of esophagogastroduodenoscopy (EGD) per referal egd and colonoscopy done 05/30/20, repeat in 3 years. S/P excision of lipoma posterior neck Repair of inguinal hernia Tobacco Smoking/Tobacco Use Status: Current every day Tobacco Type: cigarettes Smoking cigarettes per day: 8 Alcohol Alcohol Intake: current Alcohol intake frequency: 3 or more drinks per day Alcohol type: beer Substance Use Substance use: Never Substance use type: does not use Vital Signs and Lab Results Vital Signs Most Recent Vital Signs in EMR: Most Recent Vital Signs Temp Pulse Resp BP Pulse Ox 36.4 C L 91 H 16 142/96 H 97 07/29/23 10:45 07/29/23 10:45 07/29/23 10:45 07/29/23 10:45 07/29/23 10:45 Point of Care Results Point of Care Results: Finger Stick Blood Glucose 113 07/29/23 11:03 Lab Results Blood Type / Crossmatch: No Data to Display Complete Blood Count: No Data to Display Complete Metabolic Panel: No Data to Display Liver Function Panel: No Data to Display Coagulation Panel: No Data to Display Cardiac Panel: No Data to Display Arterial Blood Gas: No Data to Display Venous Blood Gas: No Data to Display Pancreas Panel: No Data to Display Thyroid Panel: No Data to Display Infectious Disease: No Data to Display Blood Cultures: No Data to Display Toxicology Panel: No Data to Display Anesthesia Assessment and Plan Anesthesia History Personal History: No History of Anesthesia Complications Family History: No Family History of Anesthesia Complications Exercise Tolerance Exercise Tolerance: Metabolic Equivalents>4 Pertinent Negatives Pertinent Negatives: No Symptoms of GERD, No Major Cardiovascular Symptoms or Complaints, No Major Pulmonary Symptoms or Complaints and No History of CVA/TIA Cardiac & Pulmonary Exam Cardiac Exam: Normal S1/S2 Heart Sounds Pulmonary Exam: Wheezing Present (faint expiratory wheeze bilaterally ) Implantable Cardiac Device Does patient have a Pacemaker or an ICD?: No Airway Exam Known Difficult Airway: No Mallampati Class: 3 Mouth Opening: Normal (> 3cm) Thyromental Distance: Greater than 3 cm Neck Range of Motion: Full ROM Neck Circumference: Normal Teeth Condition: Other (upper plate that pt reports is fixed very firmly in mouth ) ASA Classification ASA Score: ASA 2 Emergency Case?: No NPO Status NPO Status: NPO Clears >2 hours, Solids >8 hours Anesthesia Plan Resuscitation Status: Full Code Anesthesia Technique: General Anesthesia Airway Planned: Natural Airway Monitors Used: Standard Monitors
[2023-07-29 11:45] VITALS: BMI 26.4
--- NOTE | 2023-07-29 12:15 | BOWEL_PTH ---
PATIENT: Remi Raya LOC: [facility] U#:[id number] AGE/SX: 58/M ROOM: RE07/29/[address]: Brennen Cruz : 1965 BED: DIS: 07/29/2023 SPEC #: [id number] RECD: 07/29/23 13:07 STATUS: [facility] #: [id number] NAHID: 07/29/23 12:[address]: Brennen Cruz DEPT: Surgical Specimen RECD BY: Savanah Cortez ENTERED: 07/29/23 13:08 SP TYPE: Bowel OTHR DR: Cindy Uribe Tissues: 1 - BIOPSY BOWEL 2 - BIOPSY BOWEL Procedures: GROSS AND MICRO LEVEL 4 Comments: [id number]
[2023-07-29 12:29] VITALS: BP 120/88; PULSE 86; RESP 16; TEMP 36.4; O2SAT 97
[2023-07-29 12:45] VITALS: BP 141/106; PULSE 80; RESP 16; TEMP 36.6; O2SAT 98
--- NOTE | 2023-07-29 13:05 | W.ANESPOSTOP ---
Postoperative Evaluation Date, Time and Location Date Performed: 07/29/23 Time Performed: 12:55 Patient Location: Day Surgery Unit Vital Signs Most Recent Imported Vital Signs: Most Recent Vital Signs Temp Pulse Resp BP Pulse Ox 36.6 C 80 16 141/106 H 98 07/29/23 12:45 07/29/23 12:45 07/29/23 12:45 07/29/23 12:45 07/29/23 12:45 Pain Score Most Recent Pain Score: Most Recent Pain Score Pain Level 0 07/29/23 12:45 Assessment Mental Status: Awake (Alert & Oriented to Patient Baseline) Airway and Respiratory Function: Patent airway with normal (patient baseline) respiratory exam Cardiovascular Function: Hemodynamically Stable Hydration Status: Adequately Hydrated Nausea & Vomiting: No Nausea or Vomiting Pain: Pt. Denies Any Pain Peripheral Nerve Block: Patient did not receive a nerve block
== END 2023-07-29 13:03 | disposition home or self-care (01) ==
PROVIDERS: PCP Nurse Practitioner Family; Visit Provider Student in an Organized Health Care Education/Training Program
PROC: 0DJD8ZZ Inspection of Lower Intestinal Tract, Via Natural or Artificial Opening Endoscopic (ICD-10-PCS; CPT 45378; principal; 2023-07-29 12:15)
DX: Z12.11 Encounter for screening for malignant neoplasm of colon (principal); D12.5 Benign neoplasm of sigmoid colon; K57.30 Diverticulosis of large intestine without perforation or abscess without bleeding; I10 Essential (primary) hypertension; E11.9 Type 2 diabetes mellitus without complications; N40.0 Benign prostatic hyperplasia without lower urinary tract symptoms; F17.200 Nicotine dependence, unspecified, uncomplicated
CPT/HCPCS: 45385; 45380; 00123; 88305; J2001; J2704

== ENCOUNTER 2024-06-25 16:46 | Outpatient (REF) | payer BC, SELFPAY ==
[2024-06-25 19:18] LABS: ALT 22 U/L (16-63); AST 15 U/L (15-37); Albumin 3.5 g/dL (3.4-5.0); Alkaline Phosphatase 89 U/L (46-116); BUN 15 mg/dL (7-18); CREATININE 1.2 mg/dL (0.70-1.30); Calcium 9.1 mg/dL (8.5-10.1); Calculated LDL 83 mg/dL (<100); Chloride 105 mmol/L (98-107); Cholesterol 152 mg/dL (<200); Estimated GFR 69.66 (mL/min/1.73m2); Glucose 150 mg/dL (74-106); HDL Cholesterol 52 mg/dL (40-60); Potassium 4.4 mmol/L (3.5-5.1); Sodium 140 mmol/L (136-145); Total Protein 6.5 g/dL (6.4-8.2); Triglyceride 86 mg/dL (<150)
[2024-06-25 19:53] LABS: COMMENT (LAB VIEW ONLY) 113.99 mg/dL; Microalb ug/mg Crea 11.9 ug/mg Cr
== END 2024-06-25 16:47 | disposition home or self-care (01) ==
LOC: NCHCN 16:46
PROVIDERS: PCP Nurse Practitioner Family; Visit Provider Nurse Practitioner Family
DX: E11.9 Type 2 diabetes mellitus without complications (principal); E78.5 Hyperlipidemia, unspecified
CPT/HCPCS: 80053; 80061; 82043; 82570; 83036

== ENCOUNTER 2024-07-31 08:32 | Emergency (ER) | payer BC, SELFPAY ==
[2024-07-31 08:35] VITALS: BP 145/82; PULSE 106; RESP 17; TEMP 36.7; O2SAT 98
[2024-07-31 08:40] VITALS: BP 145/82; PULSE 106; RESP 17; TEMP 36.7; O2SAT 98
--- NOTE | 2024-07-31 09:00 | DI.RAD_ITS ---
Exam(s) XR CHEST 2V PA LATERAL EXAM: XR CHEST 2V PA LATERAL CLINICAL HISTORY: shortness of breath, persistent cough. TECHNIQUE: 2D digital imaging was performed. COMPARISON: CR CHEST 2 VIEWS PA,LAT from 02/27/2010 FINDINGS: 2 views: Heart size is normal. The mediastinum is not widened. Lungs are clear. No infiltrates nor pleural effusions. There are healed fractures of the right 6 and 7th ribs noted. IMPRESSION: No acute pulmonary findings. Healed fractures of the right 6 and 7th ribs noted. DATA REPOSITORY: RADIATION DOSE DELIVERED:
--- NOTE | 2024-07-31 11:41 | ED.GENADUL_ITS ---
Discharge Plan Disposition Patient Disposition: Home Discharge Details Clinical Impression: Acute bronchitis Primary Care Provider: Cindy Uribe ED Provider: Savanah Adams Home Meds and New Rx's Prescriptions: New fluticasone propion-salmeterol [Wixela Inhub] 250-50 mcg/dose blister with device 1 inh inhalation Q12H Qty: 60 0RF Rx Instructions: use as prescribed while sick prednisone 20 mg tablet 40 mg PO ONCE Qty: 10 0RF albuterol sulfate 90 mcg/actuation aerosol powdr breath activated 2 inh inhalation Q6H PRNQty: 1 0RF Continued acyclovir 200 mg capsule 400 mg PO BID albuterol sulfate 90 mcg/actuation aerosol powdr breath activated 2 inh inhalation Q6H PRN amlodipine 5 mg tablet 5 mg PO DAILY atorvastatin 40 mg tablet 40 mg PO DAILY Allergy Relief (cetirizine) 10 mg capsule 10 mg PO DAILY PRN losartan 50 mg tablet 50 mg PO DAILY metformin 750 mg tablet extended release 24 hr 750 mg PO DAILY pantoprazole 40 mg tablet,delayed release (DR/EC) 40 mg PO DAILY tamsulosin 0.4 MG capsule 0.4 mg PO DAILY budesonide-formoterol [Symbicort] 160-4.5 mcg/actuation HFA aerosol inhaler 2 puff IH BID Qty: 6 0RF Discharge Instructions Instructions: Bronchitis, Adult ED Additional Instructions: Use 2 puffs of albuterol every 4-6 hours as needed for cough, wheeze, shortness of breath with spacer Take the prednisone daily as prescribed for the next 5 days Use the Advair, this has a steroid and will be directly related to your lungs and likely help you and feel better earlier when you are ill You likely have a component of chronic obstructive pulmonary disease with your history of tobacco use, please talk to your doctor about this you may benefit from some spirometry testing If your symptoms persist greater than additional month after taking these medications I do recommend that you have follow-up with pulmonology and primary care doctor Return earlier with chest pain fever or should any new concerns arise Referrals: Cindy Uribe [Primary Care Provider] - 1 day HPI General Date/Time Provider Initiated Documentation: 07/31/24 09:09 . HPI Narrative: The patient is a 59-year-old male with a history of COPD, diabetes, and hypertension who presents with cough and increased mucus production for the past 3 months. He reports a mild improvement in his condition following a week-long course of antibiotics prescribed by his primary care physician after being ill for 3 months. However, he feels significantly worse today. He does not use a rescue inhaler and does not endorse any shortness of breath or chest discomfort. He experiences some muscle wall pain from coughing. He does not have any hemoptysis, fever, chills, or known sick contacts. He also does not have any calf swelling or tenderness. Related Data Home Medications ?Medication ?Instructions ?Recorded ?Confirmed tamsulosin 0.4 mg capsule 0.4 mg PO DAILY 10/21/15 07/31/24 budesonide-formoterol HFA 160 2 puff inhalation BID #6 grams 06/07/19 07/31/24 mcg-4.5 mcg/actuation aerosol inhaler (Symbicort) acyclovir 200 mg capsule 400 mg PO BID 06/28/23 07/31/24 albuterol sulfate 90 mcg/actuation 2 inh inhalation Q6H PRN 06/28/23 07/31/24 breath activated powder inhaler amlodipine 5 mg tablet 5 mg PO DAILY 06/28/23 07/31/24 atorvastatin 40 mg tablet 40 mg PO DAILY 06/28/23 07/31/24 cetirizine 10 mg capsule (Allergy 10 mg PO DAILY PRN 06/28/23 07/31/24 Relief (cetirizine)) losartan 50 mg tablet 50 mg PO DAILY 06/28/23 07/31/24 metformin 750 mg tablet,extended 750 mg PO DAILY 06/28/23 07/31/24 release 24 hr pantoprazole 40 mg tablet,delayed 40 mg PO DAILY 06/28/23 07/31/24 release albuterol sulfate 90 mcg/actuation 2 inh inhalation Q6H PRN #1 ea 07/31/24 breath activated powder inhaler fluticasone 250 mcg-salmeterol 50 1 inh inhalation Q12H #60 ea 07/31/24 mcg/dose blistr powdr for inhalation (Wixela Inhub) prednisone 20 mg tablet 40 mg (2 x 20 mg) PO ONCE #10 tabs 07/31/24 Previous Rx's ?Medication ?Instructions ?Recorded budesonide-formoterol HFA 160 2 puff inhalation BID #6 grams 06/07/19 mcg-4.5 mcg/actuation aerosol inhaler (Symbicort) albuterol sulfate 90 mcg/actuation 2 inh inhalation Q6H PRN #1 ea 07/31/24 breath activated powder inhaler fluticasone 250 mcg-salmeterol 50 1 inh inhalation Q12H #60 ea 07/31/24 mcg/dose blistr powdr for inhalation (Wixela Inhub) prednisone 20 mg tablet 40 mg (2 x 20 mg) PO ONCE #10 tabs 07/31/24 Allergies Allergy/AdvReac Type Severity Reaction Status Date / Time pravastatin Allergy Severe chest pain Verified 07/31/24 08:40 General Stated Complaint: RespSymp VANESSA: 4 Exam Narrative Exam Narrative: General Appearance: Alert and oriented. Vital signs: Within normal limits. HEENT: Within normal limits. Respiratory: Wheezes and congestion with referred airway sounds in lungs. Cardiovascular: Regular heart rate and rhythm. Skin: Warm and dry, no rash. Neurological: Normal. Course Vital Signs Vital signs: Vital Signs Temperature 36.7 C 07/31/24 08:35 Pulse 106 H 07/31/24 08:35 Respiratory Rate 17 07/31/24 08:35 Blood Pressure 145/82 H 07/31/24 08:35 Pulse Oximetry 98 07/31/24 08:35 Temperature 36.7 C 07/31/24 08:40 Temperature Source Oral 07/31/24 08:40 Pulse 106 H 07/31/24 08:40 Respiratory Rate 17 07/31/24 08:40 Respiratory Effort Normal 07/31/24 08:41 Respiratory Depth Normal 07/31/24 08:41 Blood Pressure 145/82 H 07/31/24 08:40 Blood Pressure Position Sitting 07/31/24 08:40 Pulse Oximetry 98 07/31/24 08:40 Oxygen Delivery Method Room Air 07/31/24 08:40 Oxygen Flow Rate 0 07/31/24 08:40 Pain Level 0 07/31/24 08:40 Medical Decision Making Initial Assessment: 59-year-old male with history of COPD, diabetes, hypertension, presents with cough and increased mucus production for the past 3 months. Mild improvement with antibiotics but worse today. Denies shortness of breath, chest discomfort, hemoptysis, fever, chills, or known sick contacts. Muscle wall pain from coughing. ED Course: - Patient alert and oriented, no respiratory distress, wheezes, congestion, referred airway sounds. - Chest x-ray ordered. - X-ray per radiology interpretation and my review: no acute abnormality. - Start Advair, prednisone 40 mg for 5 days, albuterol rescue inhaler. - Reviewed return precautions, patient expressed understanding. - Discharged home in stable condition with stable vitals. Final Assessment: Patient with persistent cough and increased mucus production for 3 months, mild improvement with antibiotics but worse today. Chest x-ray shows no acute abnormality. Treatment initiated with Advair, prednisone, and albuterol rescue inhaler. Clinical Impression: - COPD Disposition: - Discharge: Patient discharged home in stable condition. - Follow-Up: Recheck in 1 month with primary care physician. Chest x-ray shows no acute abnormality. Quality:[facility] Health Related Social Needs: No Data to Display [facility] All Active Problems (Updated 07/31/24 @ 10:04 by ZULEYKA Hart) Acute bronchitis (Acute) Urticaria (Acute) Blood-tinged sputum (Acute) Screening for colorectal cancer (Acute) Medical History (Updated 07/31/24 @ 10:04 by ZULEYKA Hart) Tubular adenoma of colon Tobacco dependency History of colon polyps Wheezing Benign prostatic hyperplasia Essential hypertension Type 2 diabetes mellitus Herpes simplex virus (HSV) hepatitis Gastroesophageal reflux disease Hyperlipidemia Surgical History (Updated 07/31/23 @ 09:33 by Lisa Lo) History of colonoscopy (~07/2023) per referal egd and colonoscopy done 05/30/20 at [facility], repeat in 3 years for multiple polyps and tubular adenomas. History of esophagogastroduodenoscopy (EGD) per referal egd and colonoscopy done 05/30/20, repeat in 3 years. S/P excision of lipoma posterior neck Repair of inguinal hernia Social History Smoking/Tobacco Use Status: Current every day Tobacco Type: cigarettes Smoking risk assessment performed?: Yes Alcohol Intake: current Alcohol Intake frequency: 3 or more drinks per day Alcohol type: beer Drug use: Never Substance use type: does not use Housing: house Do you feel safe at home: Yes Do you feel safe in your relationship?: Yes PAWSS Have you Been Recently Intoxicated or Drunk Within the Last 30 days?: No Have you Ever Experienced Previous Episodes of Alcohol Withdrawal?: No Have you ever Experienced Withdrawal Seizures?: No Have you ever Experienced Delirium Tremens(DT)s?: No Have you ever undergone Alcohol Rehabilitation Treatment (i.e, inpt ot outpatient treatment programs)?: No Have you ever Experienced Blackouts?: No Have you ever Combined Alcohol with other Downers within the last 90 days?: No Have you ever Combined Alcohol with any other Substance of Abuse during the last 90 days?: No Result: 0
== END 2024-07-31 10:14 | disposition home or self-care (01) ==
PROVIDERS: Emergency Provider Physician Assistant; PCP Nurse Practitioner Family
DX: J20.9 Acute bronchitis, unspecified (principal); J44.0 Chronic obstructive pulmonary disease with (acute) lower respiratory infection; I10 Essential (primary) hypertension; E78.5 Hyperlipidemia, unspecified; E11.9 Type 2 diabetes mellitus without complications; F17.210 Nicotine dependence, cigarettes, uncomplicated; Z79.84 Long term (current) use of oral hypoglycemic drugs
CPT/HCPCS: 99283; 71046

== ENCOUNTER 2025-01-14 08:53 | Outpatient (REF) | payer BC, SELFPAY ==
[2025-01-18 22:03] LABS: Pancreatic Elastase, F 362 mcg/g
== END 2025-01-14 08:54 | disposition home or self-care (01) ==
LOC: NCHCN 08:53
PROVIDERS: PCP Nurse Practitioner Family; Visit Provider Nurse Practitioner Family
DX: K52.9 Noninfective gastroenteritis and colitis, unspecified (principal)
CPT/HCPCS: 82656